=== PATIENT | female | born 1960 | race Two or more races ===

== ENCOUNTER 2021-04-18 08:18 | Inpatient (IN) | payer MEDICAID, OTHER ==
[~2021-04-18] VITALS: Ht 167.6 cm; Wt 98.0 kg
[2021-04-18] MEDS: BUDESONIDE (INHALATION) 180 MCG IH IN SCH (07:18)
[2021-04-18] MEDS ORDERED: cefTRIAXone 1GM/50ML D5W 50 ML IV ONE (10:15)
[2021-04-18 10:25] LABS: Basophils # (auto) 0 10 ^3/uL (0-0.2); Basophils % (auto) 0.1 % (0.0-2.0); Eosinophils # (auto) 0 10 ^3/uL (0-0.8); Hematocrit 43.5 % (36.0-46.0); Hemoglobin 14.5 g/dL (12.2-16.2); Lymphocytes # (auto) 1.2 10 ^3/uL (0.4-5.4); Lymphocytes % (auto) 12.7 % (10.0-50.0); Mean Corpuscular Hemoglobin 28.8 pg (28.0-32.0); Mean Corpuscular Hgb Conc. 33.2 g/dL (32.0-36.0); Mean Corpuscular Volume 86.8 fL (80.0-100.0); Monocytes # (auto) 0.4 10 ^3/uL (0-1.3); Monocytes % (auto) 4.3 % (0.0-12.0); Neutrophils # (auto) 7.7 10 ^3/uL (1.6-8.6); Neutrophils % (auto) 82.9 % (37.0-80.0); Red Blood Cells 5.02 10^6/uL (4.0-5.20); Red Cell Distribution Width 13.7 % (11.8-14.3); White Blood Cell 9.3 10^3/uL (4.4-10.8)
[2021-04-18 10:35] LABS: Alanine Aminotransferase 88 U/L (13-56); Albumin 2.9 g/dL (3.4-5.0); Anion Gap 9 (5-15); Aspartate Aminotransferase 67 U/L (15-37); BUN/Creatinine Ratio 14.5; Blood Urea Nitrogen 10 mg/dL (7-18); Calcium 8.8 mg/dL (8.5-10.1); Carbon Dioxide 26 mmol/L (21-32); Chloride 105 mmol/L (98-107); GFR African American 112 mL/min; GFR Non-African American 92 mL/min; Glucose 207 mg/dL (74-106); Potassium 3.6 mmol/L (3.5-5.1); Sodium 140 mmol/L (136-145)
[2021-04-18 10:39] LABS: Alkaline Phosphatase 95 U/L (45-117); Bilirubin, Total 0.5 mg/dL (0.2-1.0); Total Protein 7.3 g/dL (6.4-8.2)
[2021-04-18] MEDS ORDERED: cloNIDine HCL 0.1 MG TAB PO ONE (11:15)
[2021-04-18] MEDS ORDERED: ACETAMINOPHEN 325 MG TAB PO ONE (11:15)
[2021-04-18] MEDS ORDERED: DEXTROSE (50%) 50ML SYRG IV PRN ×2 (13:15→14:15)
[2021-04-18] MEDS ORDERED: MORPHINE SULFATE INJECTION 2 MG/ML SYRG IV PRN ×3 (13:15→14:15)
[2021-04-18] MEDS ORDERED: NITROGLYCERIN 0.4 MG SL TAB SL PRN ×2 (13:15→14:15)
[2021-04-18] MEDS ORDERED: IOHEXOL 350 MG/ML 100ML IJ ONE (13:53)
[2021-04-18] MEDS ORDERED: ACETAMINOPHEN 325 MG TAB PO PRN (14:15)
[2021-04-18] MEDS ORDERED: METOCLOPRAMIDE HCL 5MG/ml INJ 2ml VIAL IV PRN (14:15)
[2021-04-18] MEDS ORDERED: ALUM & MAG HYDROX-SIMETH LIQ(MAALOX) 30 ML PO PRN (14:15)
[2021-04-18] MEDS ORDERED: LOSARTAN POTASSIUM 50 MG TAB PO ONE (14:15)
[2021-04-18] MEDS ORDERED: DOCUSATE SOD 100 MG CAP PO PRN (14:15)
[2021-04-18] MEDS ORDERED: ACETAMINOPHEN 500 MG TAB PO PRN (14:15)
[2021-04-18] MEDS: hydrALAZINE HCL 20 MG/ML VL IV PRN (15:10)
[2021-04-18 15:15] LABS: Basophils # (auto) 0 10 ^3/uL (0-0.2); Basophils % (auto) 0.3 % (0.0-2.0); Eosinophils # (auto) 0 10 ^3/uL (0-0.8); Hemoglobin 13.9 g/dL (12.2-16.2); Lymphocytes # (auto) 1.3 10 ^3/uL (0.4-5.4); Mean Corpuscular Hemoglobin 28.4 pg (28.0-32.0); Monocytes # (auto) 0.3 10 ^3/uL (0-1.3); Monocytes % (auto) 3.6 % (0.0-12.0); Neutrophils # (auto) 5.9 10 ^3/uL (1.6-8.6); Neutrophils % (auto) 79.1 % (37.0-80.0); Red Blood Cells 4.89 10^6/uL (4.0-5.20); Red Cell Distribution Width 13.7 % (11.8-14.3); White Blood Cell 7.5 10^3/uL (4.4-10.8)
[2021-04-18 15:39] LABS: Thyroid Stimulating Hormone 2.16 uIU/mL (0.358-3.74)
[2021-04-18 15:39] LABS: Albumin 2.9 g/dL (3.4-5.0); Calcium 8.7 mg/dL (8.5-10.1); Magnesium 2.4 mg/dL (1.6-2.6); Potassium 3.4 mmol/L (3.5-5.1)
[2021-04-18 15:46] LABS: BUN/Creatinine Ratio 12.1; Bilirubin, Total 0.4 mg/dL (0.2-1.0); CRP High Sensitivity 8.24 mg/dL (< 0.3); Total Protein 6.8 g/dL (6.4-8.2)
[2021-04-18] MEDS ORDERED: LORazepam 2MG/ML-1ML VIAL IV ONE (16:15)
[2021-04-18] MEDS ORDERED: ACCU-CHEK COMFORT CURVE STRIP VI SCH (17:00)
[2021-04-18] MEDS ORDERED: InsuLIN REG 1unit/0.01ml Soln (100units/ml) SC SCH ×2 (17:00→22:00)
[2021-04-18] MEDS: InsuLIN REG 1unit/0.01ml Soln (100units/ml) SC SCH ×2 (17:04→20:42)
[2021-04-18 17:06] LABS: Cholesterol 171 mg/dL (< 200)
[2021-04-18 17:10] LABS: HDL Cholesterol 45 mg/dL (40-59); LDL Cholesterol 102 mg/dL (< 100); Triglycerides 191 mg/dL (< 150)
[2021-04-18] MEDS: ACCU-CHEK COMFORT CURVE STRIP VI SCH ×2 (17:10→20:43)
[2021-04-18] MEDS: FUROSEMIDE 20 MG/2 ML VIAL IV SCH (18:20)
[2021-04-18] MEDS ORDERED: LISINOPRIL 20 MG TAB PO ONE (18:30)
[2021-04-18] MEDS: POTASSIUM CHL 20 Meq TABLET PO SCH (20:41)
[2021-04-18] MEDS: ATORVASTATIN 20 MG TAB PO SCH (20:41)
[2021-04-18] MEDS: ENOXAPARIN SOD 40 MG/0.4 ML SYRINGE SC SCH (20:42)
[2021-04-18] MEDS: HYDROcodone-ACET 5/325MG TAB PO PRN (20:43)
[2021-04-18 22:04] VITALS: BP 138/96
[2021-04-18 23:30] VITALS: BP 148/97
[2021-04-19] MEDS ORDERED: METF-370 PO (03:00)
[2021-04-19] MEDS ORDERED: LOSA25TA38 PO (03:00)
[2021-04-19 05:00] VITALS: BP 160/115
[2021-04-19] MEDS: FUROSEMIDE 20 MG/2 ML VIAL IV SCH ×2 (06:04→18:37)
[2021-04-19] MEDS: hydrALAZINE HCL 20 MG/ML VL IV PRN (06:06)
[2021-04-19] MEDS: InsuLIN REG 1unit/0.01ml Soln (100units/ml) SC SCH ×4 (06:21→22:20)
[2021-04-19] MEDS: ACCU-CHEK COMFORT CURVE STRIP VI SCH ×4 (06:22→22:05)
[2021-04-19 06:26] LABS: Basophils # (auto) 0 10 ^3/uL (0-0.2); Basophils % (auto) 0.3 % (0.0-2.0); Eosinophils # (auto) 0 10 ^3/uL (0-0.8); Hematocrit 43.1 % (36.0-46.0); Hemoglobin 14.6 g/dL (12.2-16.2); Lymphocytes # (auto) 1.6 10 ^3/uL (0.4-5.4); Lymphocytes % (auto) 20.8 % (10.0-50.0); Mean Corpuscular Hgb Conc. 33.8 g/dL (32.0-36.0); Mean Corpuscular Volume 85.7 fL (80.0-100.0); Monocytes # (auto) 0.3 10 ^3/uL (0-1.3); Monocytes % (auto) 3.8 % (0.0-12.0); Neutrophils # (auto) 5.6 10 ^3/uL (1.6-8.6); Neutrophils % (auto) 75.1 % (37.0-80.0); Nucleated Red Blood Cells % 0.1 %; Red Blood Cells 5.04 10^6/uL (4.0-5.20); Red Cell Distribution Width 13.3 % (11.8-14.3); White Blood Cell 7.5 10^3/uL (4.4-10.8)
[2021-04-19 06:53] LABS: Albumin 2.9 g/dL (3.4-5.0); BUN/Creatinine Ratio 14.7; Calcium 8.6 mg/dL (8.5-10.1); Potassium 3.6 mmol/L (3.5-5.1)
[2021-04-19 06:56] LABS: Bilirubin, Total 0.6 mg/dL (0.2-1.0); Total Protein 7.4 g/dL (6.4-8.2)
[2021-04-19 07:07] LABS: Urine Bacteria NONE SEEN /hpf (None Seen); Urine Blood Negative /uL (Negative); Urine Mucus FEW (None Seen); Urine Specific Gravity 1.032 (1.001-1.035); Urine WBC 31 /hpf (0 - 5)
[2021-04-19] MEDS: BUDESONIDE (INHALATION) 180 MCG IH IN SCH ×2 (07:18→22:55)
[2021-04-19 07:21] LABS: Barbiturate Scree,Urine NEGATIVE (NEGATIVE); Benzodiazephine Screen, Urine NEGATIVE (NEGATIVE); Cannabinoid Screen, Urine NEGATIVE (NEGATIVE)
[2021-04-19 07:36] LABS: Amphetamine Screen, Urine NEGATIVE (NEGATIVE); Cocaine Screen, Urine NEGATIVE (NEGATIVE); Opiate Scree,Urine POSITIVE (NEGATIVE); Phencyclidine Screen, Urine NEGATIVE (NEGATIVE)
[2021-04-19 07:41] LABS: Alcohol, Urine < 3.0 mg/dL (0-10)
[2021-04-19 09:00] VITALS: BP 124/88
[2021-04-19] MEDS ORDERED: AZITHROMYCIN 500MG/ 250ML 250 ML IV SCH (10:00)
[2021-04-19] MEDS: ASPirin 81 mg TAB PO SCH (10:31)
[2021-04-19] MEDS: LOSARTAN POTASSIUM 50 MG TAB PO SCH (10:32)
[2021-04-19] MEDS: POTASSIUM CHL 20 Meq TABLET PO SCH ×2 (10:32→22:05)
[2021-04-19] MEDS: ASCORBIC ACID 1,000 MG TAB PO SCH (10:32)
[2021-04-19] MEDS: CHOLECALCIFEROL (VITD3) 2,000 UNIT CAP/TAB PO SCH (10:33)
[2021-04-19] MEDS: ENOXAPARIN SOD 40 MG/0.4 ML SYRINGE SC SCH ×2 (10:34→22:05)
[2021-04-19] MEDS: DOXYCYCLINE 100MG/250ML 250 ML IV SCH ×2 (12:40→23:37)
[2021-04-19] MEDS: guaiFENesin-DM 100/10mg/5ml SYR PO PRN ×2 (12:42→22:06)
[2021-04-19 13:00] VITALS: BP 145/89
[2021-04-19] MEDS ORDERED: REMDESIVIR PER PHARMACY 0 ML IV SCH (15:45)
[2021-04-19] MEDS ORDERED: REMDESIVIR 200 MG in NS 210ml LOADING DOSE ADULT IV ONE (16:00)
[2021-04-19 17:00] VITALS: BP 147/103
[2021-04-19] MEDS: IVERMECTIN 3 MG TAB PO SCH (17:32)
[2021-04-19 22:00] VITALS: BP 110/67
[2021-04-19] MEDS: ATORVASTATIN 20 MG TAB PO SCH (22:05)
[2021-04-19] MEDS: ALBUTEROL SULF HFA 90MCG INH 200DOSE IN PRN (23:24)
[2021-04-20 05:00] VITALS: BP 134/81
[2021-04-20] MEDS: FUROSEMIDE 20 MG/2 ML VIAL IV SCH ×2 (06:02→17:30)
[2021-04-20] MEDS: guaiFENesin-DM 100/10mg/5ml SYR PO PRN ×2 (06:02→20:40)
[2021-04-20] MEDS: ACCU-CHEK COMFORT CURVE STRIP VI SCH ×4 (06:02→21:41)
[2021-04-20] MEDS: InsuLIN REG 1unit/0.01ml Soln (100units/ml) SC SCH ×4 (06:06→21:40)
[2021-04-20] MEDS: ALBUTEROL SULF HFA 90MCG INH 200DOSE IN PRN ×2 (07:04→20:26)
[2021-04-20] MEDS: BUDESONIDE (INHALATION) 180 MCG IH IN SCH ×2 (07:04→20:26)
[2021-04-20] MEDS: ASPirin 81 mg TAB PO SCH (08:29)
[2021-04-20] MEDS: ASCORBIC ACID 1,000 MG TAB PO SCH (08:30)
[2021-04-20] MEDS: IVERMECTIN 3 MG TAB PO SCH (08:30)
[2021-04-20] MEDS: POTASSIUM CHL 20 Meq TABLET PO SCH ×2 (08:30→21:41)
[2021-04-20] MEDS: CHOLECALCIFEROL (VITD3) 2,000 UNIT CAP/TAB PO SCH (08:31)
[2021-04-20] MEDS: ENOXAPARIN SOD 40 MG/0.4 ML SYRINGE SC SCH ×2 (08:31→21:41)
[2021-04-20] MEDS: LOSARTAN POTASSIUM 50 MG TAB PO SCH (08:34)
[2021-04-20 09:00] VITALS: BP 138/75
[2021-04-20 11:09] LABS: Basophils # (auto) 0 10 ^3/uL (0-0.2); Basophils % (auto) 0.3 % (0.0-2.0); Eosinophils # (auto) 0 10 ^3/uL (0-0.8); Hematocrit 42.5 % (36.0-46.0); Hemoglobin 14.3 g/dL (12.2-16.2); Lymphocytes # (auto) 1.4 10 ^3/uL (0.4-5.4); Lymphocytes % (auto) 19.2 % (10.0-50.0); Mean Corpuscular Hemoglobin 28.7 pg (28.0-32.0); Mean Corpuscular Hgb Conc. 33.6 g/dL (32.0-36.0); Mean Corpuscular Volume 85.5 fL (80.0-100.0); Monocytes # (auto) 0.4 10 ^3/uL (0-1.3); Monocytes % (auto) 5.7 % (0.0-12.0); Neutrophils # (auto) 5.6 10 ^3/uL (1.6-8.6); Neutrophils % (auto) 74.8 % (37.0-80.0); Nucleated Red Blood Cells % 0.1 %; Red Blood Cells 4.97 10^6/uL (4.0-5.20); Red Cell Distribution Width 13.2 % (11.8-14.3); White Blood Cell 7.4 10^3/uL (4.4-10.8)
[2021-04-20 11:18] LABS: INR 1.09 (0.9-1.15); Partial Thromboplastin Time 27.3 sec (23.6-33.0)
[2021-04-20 11:22] LABS: Albumin 2.9 g/dL (3.4-5.0); Anion Gap 12 (5-15); Blood Urea Nitrogen 14 mg/dL (7-18); Calcium 9.3 mg/dL (8.5-10.1); Carbon Dioxide 24 mmol/L (21-32); Chloride 97 mmol/L (98-107); Glucose 203 mg/dL (74-106); Magnesium 2.1 mg/dL (1.6-2.6); Potassium 3.6 mmol/L (3.5-5.1); Sodium 133 mmol/L (136-145)
[2021-04-20 11:28] LABS: Alanine Aminotransferase 54 U/L (13-56); Alkaline Phosphatase 107 U/L (45-117); Aspartate Aminotransferase 37 U/L (15-37); BUN/Creatinine Ratio 20.9; Bilirubin, Total 0.7 mg/dL (0.2-1.0); GFR African American 115 mL/min; GFR Non-African American 95 mL/min; Phosphorus 2.6 mg/dL (2.5-4.90); Total Protein 7.4 g/dL (6.4-8.2)
[2021-04-20] MEDS: DOXYCYCLINE 100MG/250ML 250 ML IV SCH ×2 (11:58→23:35)
[2021-04-20 13:00] VITALS: BP 145/87
[2021-04-20] MEDS: HYDROcodone-ACET 5/325MG TAB PO PRN ×2 (14:56→23:04)
[2021-04-20] MEDS: REMDESIVIR 100mg 100 MG in SODIUM CHL 0.9% 230 ML IV SCH (15:04)
[2021-04-20 17:00] VITALS: BP 152/91
[2021-04-20] MEDS: ATORVASTATIN 20 MG TAB PO SCH (21:41)
[2021-04-20 21:55] VITALS: BP 140/75
[2021-04-21] MEDS: LORazepam 0.5 MG TAB PO PRN (01:48)
[2021-04-21 04:42] VITALS: BP 143/96
[2021-04-21 06:45] LABS: Basophils # (auto) 0 10 ^3/uL (0-0.2); Basophils % (auto) 0.1 % (0.0-2.0); Eosinophils # (auto) 0 10 ^3/uL (0-0.8); Eosinophils % (auto) 0.3 % (0.0-7.0); Hematocrit 42.8 % (36.0-46.0); Hemoglobin 14.5 g/dL (12.2-16.2); Lymphocytes # (auto) 1.5 10 ^3/uL (0.4-5.4); Lymphocytes % (auto) 17.1 % (10.0-50.0); Mean Corpuscular Hemoglobin 29.3 pg (28.0-32.0); Mean Corpuscular Hgb Conc. 33.9 g/dL (32.0-36.0); Mean Corpuscular Volume 86.6 fL (80.0-100.0); Monocytes # (auto) 0.5 10 ^3/uL (0-1.3); Monocytes % (auto) 5.1 % (0.0-12.0); Neutrophils # (auto) 6.9 10 ^3/uL (1.6-8.6); Neutrophils % (auto) 77.4 % (37.0-80.0); Red Blood Cells 4.94 10^6/uL (4.0-5.20); Red Cell Distribution Width 13.3 % (11.8-14.3); White Blood Cell 8.9 10^3/uL (4.4-10.8)
[2021-04-21] MEDS: InsuLIN REG 1unit/0.01ml Soln (100units/ml) SC SCH ×4 (06:47→22:21)
[2021-04-21] MEDS: FUROSEMIDE 20 MG/2 ML VIAL IV SCH ×2 (06:47→16:45)
[2021-04-21 06:52] LABS: INR 1.17 (0.9-1.15); Partial Thromboplastin Time 28.2 sec (23.6-33.0)
[2021-04-21] MEDS: BUDESONIDE (INHALATION) 180 MCG IH IN SCH ×2 (06:58→19:40)
[2021-04-21] MEDS: ALBUTEROL SULF HFA 90MCG INH 200DOSE IN PRN ×2 (06:58→19:40)
[2021-04-21 07:00] LABS: Potassium 3.4 mmol/L (3.5-5.1)
[2021-04-21] MEDS: ACCU-CHEK COMFORT CURVE STRIP VI SCH ×4 (07:00→22:01)
[2021-04-21 07:16] LABS: Albumin 2.5 g/dL (3.4-5.0); BUN/Creatinine Ratio 22.2; Bilirubin, Total 0.6 mg/dL (0.2-1.0); Calcium 8.8 mg/dL (8.5-10.1); Magnesium 2.1 mg/dL (1.6-2.6); Phosphorus 2.9 mg/dL (2.5-4.90); Total Protein 6.7 g/dL (6.4-8.2)
[2021-04-21] MEDS: LOSARTAN POTASSIUM 50 MG TAB PO SCH (08:50)
[2021-04-21] MEDS: ASPirin 81 mg TAB PO SCH (08:50)
[2021-04-21] MEDS: POTASSIUM CHL 20 Meq TABLET PO SCH ×2 (08:51→22:04)
[2021-04-21] MEDS: IVERMECTIN 3 MG TAB PO SCH (08:51)
[2021-04-21] MEDS: ASCORBIC ACID 1,000 MG TAB PO SCH (08:51)
[2021-04-21] MEDS: CHOLECALCIFEROL (VITD3) 2,000 UNIT CAP/TAB PO SCH (08:52)
[2021-04-21] MEDS: ENOXAPARIN SOD 40 MG/0.4 ML SYRINGE SC SCH ×2 (08:52→22:04)
[2021-04-21 09:00] VITALS: BP 127/96
[2021-04-21] MEDS: DOXYCYCLINE 100MG/250ML 250 ML IV SCH ×2 (11:57→23:14)
[2021-04-21 13:00] VITALS: BP 128/74
[2021-04-21] MEDS ORDERED: POTASSIUM CHL 20 Meq TABLET PO ONE (14:30)
[2021-04-21] MEDS: REMDESIVIR 100mg 100 MG in SODIUM CHL 0.9% 230 ML IV SCH (16:45)
[2021-04-21 17:00] VITALS: BP 138/90
[2021-04-21 19:39] VITALS: BP 138/90
[2021-04-21 22:00] VITALS: BP 138/82
[2021-04-21] MEDS: ATORVASTATIN 20 MG TAB PO SCH (22:04)
[2021-04-22 05:00] VITALS: BP 145/80
[2021-04-22] MEDS: ACCU-CHEK COMFORT CURVE STRIP VI SCH ×4 (06:06→22:08)
[2021-04-22] MEDS: FUROSEMIDE 20 MG/2 ML VIAL IV SCH ×2 (06:07→16:19)
[2021-04-22] MEDS: InsuLIN REG 1unit/0.01ml Soln (100units/ml) SC SCH ×4 (06:12→22:14)
[2021-04-22 06:13] LABS: Basophils # (auto) 0 10 ^3/uL (0-0.2); Basophils % (auto) 0.2 % (0.0-2.0); Eosinophils # (auto) 0.1 10 ^3/uL (0-0.8); Eosinophils % (auto) 0.7 % (0.0-7.0); Hematocrit 42.9 % (36.0-46.0); Hemoglobin 14.6 g/dL (12.2-16.2); Lymphocytes # (auto) 1.4 10 ^3/uL (0.4-5.4); Lymphocytes % (auto) 19.5 % (10.0-50.0); Mean Corpuscular Hemoglobin 29.4 pg (28.0-32.0); Mean Corpuscular Volume 86.4 fL (80.0-100.0); Monocytes # (auto) 0.5 10 ^3/uL (0-1.3); Monocytes % (auto) 6.6 % (0.0-12.0); Neutrophils # (auto) 5.4 10 ^3/uL (1.6-8.6); Nucleated Red Blood Cells % 0.1 %; Red Blood Cells 4.96 10^6/uL (4.0-5.20); Red Cell Distribution Width 13.4 % (11.8-14.3); White Blood Cell 7.3 10^3/uL (4.4-10.8)
[2021-04-22 06:29] LABS: Calcium 8.9 mg/dL (8.5-10.1); Potassium 3.8 mmol/L (3.5-5.1)
[2021-04-22 06:35] LABS: Albumin 2.5 g/dL (3.4-5.0); BUN/Creatinine Ratio 20.8; Bilirubin, Total 0.8 mg/dL (0.2-1.0); Total Protein 6.6 g/dL (6.4-8.2)
[2021-04-22] MEDS: ASPirin 81 mg TAB PO SCH (08:42)
[2021-04-22] MEDS: IVERMECTIN 3 MG TAB PO SCH (08:43)
[2021-04-22] MEDS: POTASSIUM CHL 20 Meq TABLET PO SCH ×2 (08:44→22:07)
[2021-04-22] MEDS: CHOLECALCIFEROL (VITD3) 2,000 UNIT CAP/TAB PO SCH (08:45)
[2021-04-22] MEDS: ENOXAPARIN SOD 40 MG/0.4 ML SYRINGE SC SCH ×2 (08:45→22:08)
[2021-04-22] MEDS: ASCORBIC ACID 1,000 MG TAB PO SCH (08:45)
[2021-04-22] MEDS: LOSARTAN POTASSIUM 50 MG TAB PO SCH (08:48)
[2021-04-22 09:00] VITALS: BP 130/74
[2021-04-22] MEDS: ALBUTEROL SULF HFA 90MCG INH 200DOSE IN PRN ×2 (09:30→22:25)
[2021-04-22] MEDS: BUDESONIDE (INHALATION) 180 MCG IH IN SCH ×2 (09:30→22:25)
[2021-04-22] MEDS: DOXYCYCLINE 100MG/250ML 250 ML IV SCH (12:28)
[2021-04-22 13:28] VITALS: BP 107/66
[2021-04-22] MEDS: REMDESIVIR 100mg 100 MG in SODIUM CHL 0.9% 230 ML IV SCH (16:16)
[2021-04-22 17:14] VITALS: BP 134/75
[2021-04-22] MEDS: ATORVASTATIN 20 MG TAB PO SCH (22:07)
[2021-04-22 22:18] VITALS: BP 137/88
[2021-04-23] MEDS: DOXYCYCLINE 100MG/250ML 250 ML IV SCH ×2 (00:12→11:53)
[2021-04-23 05:19] VITALS: BP 143/89
[2021-04-23] MEDS: FUROSEMIDE 20 MG/2 ML VIAL IV SCH ×3 (06:23→17:04)
[2021-04-23] MEDS: ACCU-CHEK COMFORT CURVE STRIP VI SCH ×4 (06:33→21:47)
[2021-04-23] MEDS: InsuLIN REG 1unit/0.01ml Soln (100units/ml) SC SCH ×4 (06:34→21:58)
[2021-04-23 07:13] LABS: Albumin 2.4 g/dL (3.4-5.0); Calcium 8.8 mg/dL (8.5-10.1); Potassium 3.8 mmol/L (3.5-5.1)
[2021-04-23 07:18] LABS: BUN/Creatinine Ratio 17.5; Bilirubin, Total 0.7 mg/dL (0.2-1.0); Total Protein 6.6 g/dL (6.4-8.2)
[2021-04-23] MEDS: ALBUTEROL SULF HFA 90MCG INH 200DOSE IN PRN ×2 (08:05→21:05)
[2021-04-23 09:00] VITALS: BP 126/96
[2021-04-23] MEDS: BUDESONIDE (INHALATION) 180 MCG IH IN SCH ×2 (10:15→20:35)
[2021-04-23] MEDS: LOSARTAN POTASSIUM 50 MG TAB PO SCH (11:28)
[2021-04-23] MEDS: ASPirin 81 mg TAB PO SCH (11:28)
[2021-04-23] MEDS: IVERMECTIN 3 MG TAB PO SCH (11:35)
[2021-04-23] MEDS: POTASSIUM CHL 20 Meq TABLET PO SCH ×2 (11:35→21:46)
[2021-04-23] MEDS: ASCORBIC ACID 1,000 MG TAB PO SCH (11:35)
[2021-04-23] MEDS: CHOLECALCIFEROL (VITD3) 2,000 UNIT CAP/TAB PO SCH (11:36)
[2021-04-23] MEDS: ENOXAPARIN SOD 40 MG/0.4 ML SYRINGE SC SCH ×2 (11:37→21:47)
[2021-04-23 13:00] VITALS: BP 145/95
[2021-04-23] MEDS ORDERED: PROMETHAZINE W/CODEINE 5 ML ORAL SYRUP PO PRN (14:00)
[2021-04-23] MEDS: REMDESIVIR 100mg 100 MG in SODIUM CHL 0.9% 230 ML IV SCH (15:53)
[2021-04-23 17:00] VITALS: BP 136/90
[2021-04-23] MEDS: ATORVASTATIN 20 MG TAB PO SCH (21:46)
[2021-04-23] MEDS: LORazepam 0.5 MG TAB PO PRN (21:47)
[2021-04-23] MEDS: DOXYCYCLINE 100 MG TAB/CAP PO SCH (21:47)
[2021-04-23 22:00] VITALS: BP 138/74
[2021-04-24 05:00] VITALS: BP 125/82
[2021-04-24] MEDS: FUROSEMIDE 20 MG/2 ML VIAL IV SCH ×2 (06:41→17:20)
[2021-04-24] MEDS: InsuLIN REG 1unit/0.01ml Soln (100units/ml) SC SCH ×4 (06:42→21:56)
[2021-04-24] MEDS: ACCU-CHEK COMFORT CURVE STRIP VI SCH ×4 (06:42→21:54)
[2021-04-24] MEDS: BUDESONIDE (INHALATION) 180 MCG IH IN SCH ×2 (07:24→22:00)
[2021-04-24] MEDS: ALBUTEROL SULF HFA 90MCG INH 200DOSE IN PRN (07:25)
[2021-04-24 08:17] VITALS: BP 155/95
[2021-04-24] MEDS: ASPirin 81 mg TAB PO SCH (09:22)
[2021-04-24] MEDS: LOSARTAN POTASSIUM 50 MG TAB PO SCH (09:22)
[2021-04-24] MEDS: DOXYCYCLINE 100 MG TAB/CAP PO SCH ×2 (09:23→21:59)
[2021-04-24] MEDS: POTASSIUM CHL 20 Meq TABLET PO SCH ×2 (09:23→21:59)
[2021-04-24] MEDS: IVERMECTIN 3 MG TAB PO SCH (09:23)
[2021-04-24] MEDS: ENOXAPARIN SOD 40 MG/0.4 ML SYRINGE SC SCH ×2 (09:24→22:00)
[2021-04-24] MEDS: CHOLECALCIFEROL (VITD3) 2,000 UNIT CAP/TAB PO SCH (09:24)
[2021-04-24] MEDS: ASCORBIC ACID 1,000 MG TAB PO SCH (09:24)
[2021-04-24 12:59] VITALS: BP 129/84
[2021-04-24 17:00] VITALS: BP 113/60
[2021-04-24] MEDS: LORazepam 0.5 MG TAB PO PRN (21:59)
[2021-04-24] MEDS: ATORVASTATIN 20 MG TAB PO SCH (21:59)
[2021-04-24 22:00] VITALS: BP 145/86
[2021-04-25 04:28] VITALS: BP 145/86
[2021-04-25 05:00] VITALS: BP 150/75
[2021-04-25] MEDS: FUROSEMIDE 20 MG/2 ML VIAL IV SCH (06:00)
[2021-04-25] MEDS: InsuLIN REG 1unit/0.01ml Soln (100units/ml) SC SCH ×3 (06:15→16:57)
[2021-04-25] MEDS: ACCU-CHEK COMFORT CURVE STRIP VI SCH ×3 (06:16→16:58)
[2021-04-25] MEDS: BUDESONIDE (INHALATION) 180 MCG IH IN SCH (07:05)
[2021-04-25 09:00] VITALS: BP 120/79
[2021-04-25] MEDS: LOSARTAN POTASSIUM 50 MG TAB PO SCH (10:50)
[2021-04-25] MEDS: ENOXAPARIN SOD 40 MG/0.4 ML SYRINGE SC SCH (10:50)
[2021-04-25] MEDS: ASPirin 81 mg TAB PO SCH (10:51)
[2021-04-25] MEDS: CHOLECALCIFEROL (VITD3) 2,000 UNIT CAP/TAB PO SCH (10:51)
[2021-04-25] MEDS: ASCORBIC ACID 1,000 MG TAB PO SCH (10:52)
[2021-04-25] MEDS: POTASSIUM CHL 20 Meq TABLET PO SCH (10:52)
[2021-04-25] MEDS: DOXYCYCLINE 100 MG TAB/CAP PO SCH (10:52)
[2021-04-25] MEDS: IVERMECTIN 3 MG TAB PO SCH (10:52)
[2021-04-25 13:00] VITALS: BP 120/79
[2021-04-25 17:00] VITALS: BP 133/93
[2021-04-28] MEDS ORDERED: LEVO750T64 PO (00:36)
[2021-04-28] MEDS ORDERED: ACET325T10 PO (00:36)
== END 2021-04-25 17:40 | disposition home or self-care (01) | DRG 720 ==
LOC: EDBD 08:18 → ER 08:18 → TELE 14:07 → TELE-EAST 23:36
PROVIDERS: ADMIT Hospitalist; ATTEND Internal Medicine
PROC: XW033E5 Introduction of Remdesivir Anti-infective into Peripheral Vein, Percutaneous Approach, New Technology Group 5 (ICD-10-PCS; principal; 2021-04-19)
DX: A41.89 Other specified sepsis (principal); J96.01 Acute respiratory failure with hypoxia; J12.82 Pneumonia due to coronavirus disease 2019; U07.1 COVID-19; D89.839 Cytokine release syndrome, grade unspecified; E78.5 Hyperlipidemia, unspecified; I16.9 Hypertensive crisis, unspecified; E66.01 Morbid (severe) obesity due to excess calories; E88.09 Other disorders of plasma-protein metabolism, not elsewhere classified; I10 Essential (primary) hypertension; E11.9 Type 2 diabetes mellitus without complications; Z79.82 Long term (current) use of aspirin; Z68.33 Body mass index [BMI] 33.0-33.9, adult
CPT/HCPCS: 36415; 36600; 71045; 71275; 80053; 80061; 80307; 81001; 82270; 82728; 82805; 82962; 83605; 83615; 83735; 83880; 84100; 84443; 84484; 85025; 85379; 85610; 85730; 86141; 87040; 87086; 87426; 93005; 94640; 96365; 96375; 99291; G0378; J0696; J1815; J3490

== ENCOUNTER 2021-04-27 16:31 | Emergency (ER) | payer MEDICAID ==
[~2021-04-27] VITALS: Ht 172.7 cm; Wt 81.6 kg
[~2021-04-27 16:31] MED LIST: LOSA25TA38 PO; METF-370 PO
[2021-04-27 17:52] LABS: Basophils # (auto) 0.1 10 ^3/uL (0-0.2); Eosinophils # (auto) 0 10 ^3/uL (0-0.8); Mean Corpuscular Hgb Conc. 33.1 g/dL (32.0-36.0); Monocytes # (auto) 0.6 10 ^3/uL (0-1.3)
[2021-04-27 17:54] LABS: Basophils % (auto) 0.6 % (0.0-2.0); Hematocrit 44.6 % (36.0-46.0); Hemoglobin 14.8 g/dL (12.2-16.2); Lymphocytes # (auto) 1.5 10 ^3/uL (0.4-5.4); Lymphocytes % (auto) 13.8 % (10.0-50.0); Mean Corpuscular Hemoglobin 28.9 pg (28.0-32.0); Mean Corpuscular Volume 87.3 fL (80.0-100.0); Monocytes % (auto) 5.2 % (0.0-12.0); Neutrophils # (auto) 8.9 10 ^3/uL (1.6-8.6); Neutrophils % (auto) 80.4 % (37.0-80.0); Nucleated Red Blood Cells % 0.1 %; Red Blood Cells 5.11 10^6/uL (4.0-5.20); Red Cell Distribution Width 13.5 % (11.8-14.3); White Blood Cell 11.1 10^3/uL (4.4-10.8)
[2021-04-27 18:04] LABS: Albumin 3.5 g/dL (3.4-5.0); Anion Gap 10 (5-15); Blood Urea Nitrogen 8 mg/dL (7-18); Calcium 9.6 mg/dL (8.5-10.1); Carbon Dioxide 21 mmol/L (21-32); Chloride 101 mmol/L (98-107); Glucose 281 mg/dL (74-106); Lipase 204 U/L (73-393); Potassium 4.3 mmol/L (3.5-5.1); Sodium 132 mmol/L (136-145)
[2021-04-27 18:09] LABS: Lactic Acid w/Reflex 2.3 mmol/L (0.4-2.0)
[2021-04-27 18:13] LABS: Alanine Aminotransferase 84 U/L (13-56); Alkaline Phosphatase 117 U/L (45-117); Aspartate Aminotransferase 98 U/L (15-37); BUN/Creatinine Ratio 8.7; Bilirubin, Total 0.5 mg/dL (0.2-1.0); GFR African American 80 mL/min; GFR Non-African American 66 mL/min; Total Protein 8.4 g/dL (6.4-8.2)
[2021-04-27 23:00] VITALS: BP 152/92
[2021-04-28] MEDS ORDERED: ACET325T10 PO (00:36)
[2021-04-28] MEDS ORDERED: LEVO750T64 PO (00:36)
== END 2021-04-27 22:34 | disposition home or self-care (01) ==
LOC: ER 16:31 → EDBD 16:31 → EDUNIT# 16:31 → ER 22:34
DX: U07.1 COVID-19 (principal); R06.02 Shortness of breath; E11.9 Type 2 diabetes mellitus without complications; E78.5 Hyperlipidemia, unspecified; I10 Essential (primary) hypertension
CPT/HCPCS: 36415; 71045; 80053; 83605; 83690; 83880; 84484; 85025; 93005

== ENCOUNTER 2021-05-31 11:00 | Emergency (ER) | payer MEDICAID ==
[~2021-05-31] VITALS: Ht 167.6 cm; Wt 92.5 kg
[~2021-05-31 11:00] MED LIST changes: +ACET325T10 PO; +LEVO750T64 PO
[2021-05-31] MEDS ORDERED: cloNIDine HCL 0.1 MG TAB PO ONE (11:45)
[2021-05-31 12:19] LABS: Basophils # (auto) 0.1 10 ^3/uL (0-0.2); Basophils % (auto) 0.8 % (0.0-2.0); Eosinophils # (auto) 0.1 10 ^3/uL (0-0.8); Eosinophils % (auto) 0.9 % (0.0-7.0); Hemoglobin 15.1 g/dL (12.2-16.2); Lymphocytes # (auto) 2.3 10 ^3/uL (0.4-5.4); Lymphocytes % (auto) 33.3 % (10.0-50.0); Mean Corpuscular Hemoglobin 29.9 pg (28.0-32.0); Mean Corpuscular Hgb Conc. 34.2 g/dL (32.0-36.0); Mean Corpuscular Volume 87.4 fL (80.0-100.0); Monocytes # (auto) 0.5 10 ^3/uL (0-1.3); Monocytes % (auto) 7.4 % (0.0-12.0); Neutrophils # (auto) 3.9 10 ^3/uL (1.6-8.6); Neutrophils % (auto) 57.6 % (37.0-80.0); Nucleated Red Blood Cells % 0.2 %; Red Blood Cells 5.04 10^6/uL (4.0-5.20); Red Cell Distribution Width 13.9 % (11.8-14.3); White Blood Cell 6.8 10^3/uL (4.4-10.8)
[2021-05-31 12:29] LABS: Potassium 4.2 mmol/L (3.5-5.1)
[2021-05-31 12:35] LABS: Albumin 4.1 g/dL (3.4-5.0); BUN/Creatinine Ratio 12.3; Bilirubin, Total 0.6 mg/dL (0.2-1.0); Calcium 9.6 mg/dL (8.5-10.1); Total Protein 8.1 g/dL (6.4-8.2)
[2021-05-31 15:40] VITALS: BP 116/82
== END 2021-05-31 16:01 | disposition home or self-care (01) ==
LOC: ER 11:00
DX: I16.0 Hypertensive urgency (principal); E11.9 Type 2 diabetes mellitus without complications; E78.5 Hyperlipidemia, unspecified; Z79.2 Long term (current) use of antibiotics; Z79.899 Other long term (current) drug therapy
CPT/HCPCS: 36415; 71045; 80053; 84484; 85025; 93005